=== PATIENT | male | born 1985 | race Two or more races ===

== ENCOUNTER 2018-08-02 13:22 | Emergency (ER) | payer MEDICAID ==
[~2018-08-02] VITALS: Ht 172.7 cm; Wt 81.6 kg
[2018-08-02 13:37] VITALS: BP 136/84
== END 2018-08-02 15:37 | disposition home or self-care (01) ==
LOC: ER 13:24
DX: J20.9 Acute bronchitis, unspecified (principal); R11.2 Nausea with vomiting, unspecified; I10 Essential (primary) hypertension; F17.210 Nicotine dependence, cigarettes, uncomplicated; F12.10 Cannabis abuse, uncomplicated; Z90.89 Acquired absence of other organs

== ENCOUNTER 2020-03-19 11:47 | Emergency (ER) | payer MEDICAID, OTHER ==
[~2020-03-19] VITALS: Ht 175.3 cm; Wt 77.1 kg
[2020-03-19 12:48] VITALS: BP 131/90
== END 2020-03-19 13:33 | disposition home or self-care (01) ==
LOC: ER 11:47
DX: T14.8XXA Other injury of unspecified body region, initial encounter (principal); F41.9 Anxiety disorder, unspecified; M19.90 Unspecified osteoarthritis, unspecified site; I10 Essential (primary) hypertension; F17.210 Nicotine dependence, cigarettes, uncomplicated; Z88.0 Allergy status to penicillin; X58.XXXA Exposure to other specified factors, initial encounter; Y93.89 Activity, other specified; Y92.89 Other specified places as the place of occurrence of the external cause; Y99.8 Other external cause status
CPT/HCPCS: 71046; 73562